=== PATIENT | female | born 1955 | race Caucasian/White ===

== ENCOUNTER → 2016-07-17 | Outpatient (REF) | payer OTHER ==
[~2016-07-17] MED LIST: OCUVTAB PO
[2016-07-17 13:17] LABS: ALBUMIN/GLOBULIN RATIO 1.29 (1.00-1.93); ALKALINE PHOSPHATASE 116 U/L (45-117); ALT/SGPT 24 U/L (12-78); ANION GAP 8 MEQ/L (8-16); AST/SGOT 14 U/L (15-37); BILIRUBIN,TOTAL 0.4 MG/DL (0.2-1.0); BLOOD UREA NITROGEN 16 MG/DL (7-18); CALCIUM LEVEL 10.3 MG/DL (8.5-10.1); CARBON DIOXIDE LEVEL 29 MEQ/L (21-32); CHLORIDE LEVEL 108 MEQ/L (98-107); CREATININE FOR GFR 0.79 MG/DL (0.55-1.02); GLOMERULAR FILTRATION RATE > 60.0 (>51); GLUCOSE, FASTING 89 MG/DL (70-105); POTASSIUM SERUM 4.5 MEQ/L (3.5-5.1); SODIUM LEVEL 145 MEQ/L (136-145); TOTAL PROTEIN 7.1 GM/DL (6.4-8.2)
== END | disposition home or self-care (01) ==
LOC: M SFHCPLAZ 11:17
PROVIDERS: ATTEND Internal Medicine Infectious Disease
DX: R76.11 Nonspecific reaction to tuberculin skin test without active tuberculosis (principal)

== ENCOUNTER → 2017-07-18 | Outpatient (CLI) | payer OTHER | LOC: M RAD 10:15 | DX: Z12.31 Encounter for screening mammogram for malignant neoplasm of breast (principal) | CPT/HCPCS: 77067 ==

== ENCOUNTER → 2017-07-31 | Outpatient (CLI) | payer OTHER | LOC: M RAD 09:42 | DX: N60.19 Diffuse cystic mastopathy of unspecified breast (principal); N60.49 Mammary duct ectasia of unspecified breast | CPT/HCPCS: 77065 ==

== ENCOUNTER → 2017-09-09 | Outpatient (CLI) | payer OTHER ==
[2017-09-09 09:47] LABS: BASO % 0.6 % (0.0-1.0); EOS # 0.2 10^3/uL (0.0-0.50); EOS % 3.2 % (0.0-3.0); HEMATOCRIT 43.9 % (36.0-47.0); HEMOGLOBIN 14.1 g/dl (12.0-15.5); IMMATURE GRANULOCYTE % 0.3 % (0-3.0); LYMPH # 2.3 10^3/uL (1.5-4.5); MEAN CORPUSCULAR HEMOGLOBIN 29.1 pg (27.0-33.0); MEAN CORPUSCULAR HGB CONC 32.1 g/dl (32.0-36.5); MEAN CORPUSCULAR VOLUME 90.5 fl (80.0-96.0); MONO # 0.7 10^3/uL (0.0-0.8); MONO % 10.3 % (0.0-5.0); NEUTROPHILS # 3.3 10^3/uL (1.8-7.7); NEUTROPHILS % 50.6 % (36.0-66.0); PLATELET COUNT, AUTOMATED 248 10^3/uL (150-450); RED BLOOD COUNT 4.85 10^6/uL (4.00-5.40); RED CELL DISTRIBUTION WIDTH 12.8 % (11.5-14.5); WHITE BLOOD COUNT 6.5 10^3/uL (4.0-10.0)
[2017-09-09 09:49] LABS: APPEARANCE, URINE CLEAR (CLEAR); BACTERIA, URINE AUTO NEGATIVE (NEGATIVE); BILIRUBIN, URINE AUTO NEGATIVE (NEGATIVE); BLOOD, URINE BLOOD NEGATIVE (NEGATIVE); COLOR, URINE YELLOW (YELLOW); GLUCOSE, URINE (UA) AUTO NEGATIVE (NEGATIVE); KETONE, URINE AUTO NEGATIVE (NEGATIVE); LEUKOCYTE ESTERASE, URINE AUTO NEGATIVE (NEGATIVE); NITRITE, URINE AUTO NEGATIVE (NEGATIVE); PROTEIN, URINE AUTO NEGATIVE (NEGATIVE); RBC, URINE AUTO 4 /HPF (0-3); SPECIFIC GRAVITY URINE AUTO 1.013 (1.002-1.035); SQUAMOUS EPITHELIAL CELL UR AU 1 /HPF (0-6); UROBILINOGEN, URINE AUTO 0.2 mg/dL (0.0-2.0); WBC, URINE AUTO 1 /HPF (0-3)
[2017-09-09 10:20] LABS: TOTAL 25(OH) VITAMIN D 34.4 NG/ML (30.0-100.0)
[2017-09-09 10:25] LABS: ESTIMATED AVERAGE GLUCOSE 111 MG/DL (60-110); HEMOGLOBIN A1c 5.5 %
[2017-09-09 10:27] LABS: ALBUMIN 3.8 GM/DL (3.2-5.2); ALBUMIN/GLOBULIN RATIO 1.15 (1.00-1.93); ALKALINE PHOSPHATASE 109 U/L (45-117); ALT/SGPT 26 U/L (12-78); ANION GAP 3 MEQ/L (8-16); AST/SGOT 16 U/L (7-37); BILIRUBIN,TOTAL 0.5 MG/DL (0.2-1.0); BLOOD UREA NITROGEN 10 MG/DL (7-18); CALCIUM LEVEL 9.9 MG/DL (8.8-10.2); CARBON DIOXIDE LEVEL 31 MEQ/L (21-32); CHLORIDE LEVEL 110 MEQ/L (98-107); CHOLESTEROL LEVEL 223 MG/DL (<200); CHOLESTEROL RISK RATIO 3.484 (<5); CREATININE FOR GFR 0.72 MG/DL (0.55-1.30); GLOMERULAR FILTRATION RATE > 60.0 (>45); GLUCOSE, FASTING 91 MG/DL (70-100); HDL CHOLESTEROL 64 MG/DL (>40); LDL CHOLESTEROL 142.4 MG/DL (<100); NON-HDL-C 159 MG/DL; POTASSIUM SERUM 4.4 MEQ/L (3.5-5.1); SODIUM LEVEL 144 MEQ/L (136-145); THYROXINE (T4) 8.7 UG/DL (4.5-12.0); TOTAL PROTEIN 7.1 GM/DL (6.4-8.2); TRIGLYCERIDES LEVEL 83 MG/DL (<150)
== END ==
LOC: M LAB 08:31
DX: Z00.00 Encounter for general adult medical examination without abnormal findings (principal); Z11.1 Encounter for screening for respiratory tuberculosis
CPT/HCPCS: 71046

== ENCOUNTER → 2017-09-18 | Outpatient (CLI) | payer OTHER ==
[2017-09-18 11:21] LABS: APPEARANCE, URINE CLEAR (CLEAR); BACTERIA, URINE AUTO NEGATIVE (NEGATIVE); BILIRUBIN, URINE AUTO NEGATIVE (NEGATIVE); BLOOD, URINE BLOOD NEGATIVE (NEGATIVE); COLOR, URINE STRAW (YELLOW); GLUCOSE, URINE (UA) AUTO NEGATIVE (NEGATIVE); KETONE, URINE AUTO NEGATIVE (NEGATIVE); LEUKOCYTE ESTERASE, URINE AUTO NEGATIVE (NEGATIVE); NITRITE, URINE AUTO NEGATIVE (NEGATIVE); PROTEIN, URINE AUTO NEGATIVE (NEGATIVE); RBC, URINE AUTO 0 /HPF (0-3); SQUAMOUS EPITHELIAL CELL UR AU 0 /HPF (0-6); UROBILINOGEN, URINE AUTO 0.2 mg/dL (0.0-2.0); WBC, URINE AUTO 0 /HPF (0-3)
[2017-09-18 11:49] LABS: ANION GAP 6 MEQ/L (8-16); BLOOD UREA NITROGEN 11 MG/DL (7-18); CALCIUM LEVEL 10.3 MG/DL (8.8-10.2); CARBON DIOXIDE LEVEL 29 MEQ/L (21-32); CHLORIDE LEVEL 110 MEQ/L (98-107); CREATININE FOR GFR 0.81 MG/DL (0.55-1.30); GLOMERULAR FILTRATION RATE > 60.0 (>45); GLUCOSE, FASTING 105 MG/DL (70-100); SODIUM LEVEL 145 MEQ/L (136-145)
== END ==
LOC: M LAB 10:50
DX: R79.9 Abnormal finding of blood chemistry, unspecified (principal); R82.90 Unspecified abnormal findings in urine
CPT/HCPCS: 80048

== ENCOUNTER → 2018-08-28 | Outpatient (CLI) | payer OTHER, SELFPAY ==
[~2018-08-28] MED LIST changes: +ALEV220C2 PO; +VITAD1000T PO
--- NOTE | 2018-08-28 15:15 | REPMRS ---
Patient History The patient states she has not had a clinical breast exam in over a year. Family history of breast cancer at age 50 or over in maternal grandmother. 3D TOMOSYNTHESIS WAS PERFORMED. Digital Woman Screen Mammo: August 28, 2018 - Exam #: [id number] Bilateral CC and MLO view(s) were taken. Technologist: Marilyn King, Technologist Prior study comparison: July 31, 2017, right breast digital mammo diagnostic unilateral, performed at [facility]. July 18, 2017, bilateral digital mammo screening bilat, performed at [facility]. FINDINGS: There are scattered fibroglandular densities. There has been no change in the appearance of the mammogram from the prior studies. There is a mild amount of residual fibroglandular tissue which is fairly symmetric. There is no interval development of dominant mass, architectural distortion, or clustered microcalcification suggestive of malignancy. Assessment: BI-RADS/ACR category 1 mammogram. Negative Mammogram. Recommendation Routine screening mammogram in 1 year (for women over age 40). This mammogram was interpreted with the aid of an FDA-approved computer-aided dectection system. Electronically Signed By: Kendrick Rosa MD 08/28/18 [id number]
== END ==
LOC: M WHC 14:20
PROVIDERS: ATTEND Family Medicine
DX: Z12.31 Encounter for screening mammogram for malignant neoplasm of breast (principal); Z80.3 Family history of malignant neoplasm of breast

== ENCOUNTER → 2018-08-28 | Outpatient (REF) | payer OTHER, SELFPAY | LOC: M SFHCWAGY 14:24 | PROVIDERS: ATTEND Family Medicine | DX: Z12.4 Encounter for screening for malignant neoplasm of cervix (principal) ==

== ENCOUNTER → 2019-01-18 | Outpatient (CLI) | payer OTHER ==
[~2019-01-18] MED LIST changes: +CHOL100029 PO; -VITAD1000T PO
[2019-01-18 18:52] LABS: BASO % 0.4 % (0.0-1.0); EOS # 0.2 10^3/uL (0.0-0.50); EOS % 2.6 % (0.0-3.0); HEMATOCRIT 44.2 % (36.0-47.0); HEMOGLOBIN 14.1 g/dl (12.0-15.5); LYMPH # 2.4 10^3/uL (1.5-4.5); LYMPH % 33.4 % (24.0-44.0); MEAN CORPUSCULAR HEMOGLOBIN 29.4 pg (27.0-33.0); MEAN CORPUSCULAR HGB CONC 31.9 g/dl (32.0-36.5); MEAN CORPUSCULAR VOLUME 92.3 fl (80.0-96.0); MONO # 0.8 10^3/uL (0.0-0.8); MONO % 10.8 % (0.0-5.0); NEUTROPHILS # 3.8 10^3/uL (1.8-7.7); NEUTROPHILS % 52.5 % (36.0-66.0); PLATELET COUNT, AUTOMATED 256 10^3/uL (150-450); RED BLOOD COUNT 4.79 10^6/uL (4.00-5.40); WHITE BLOOD COUNT 7.2 10^3/uL (4.0-10.0)
[2019-01-18 19:04] LABS: ALT/SGPT 28 U/L (12-78); BILIRUBIN,TOTAL 0.3 MG/DL (0.2-1.0); BLOOD UREA NITROGEN 9 MG/DL (7-18); CALCIUM LEVEL 10.4 MG/DL (8.8-10.2); CARBON DIOXIDE LEVEL 31 MEQ/L (21-32); CHLORIDE LEVEL 108 MEQ/L (98-107); CHOLESTEROL LEVEL 219 MG/DL (<200); CHOLESTEROL RISK RATIO 3.842 (<5); CREATININE FOR GFR 0.78 MG/DL (0.55-1.30); FREE T4 0.84 NG/DL (0.76-1.46); GLOMERULAR FILTRATION RATE > 60.0 (>45); GLUCOSE, FASTING 87 MG/DL (70-100); HDL CHOLESTEROL 57 MG/DL (>40); LDL CHOLESTEROL 130 MG/DL (<100); NON-HDL-C 162 MG/DL; POTASSIUM SERUM 4.3 MEQ/L (3.5-5.1); SODIUM LEVEL 143 MEQ/L (136-145); TRIGLYCERIDES LEVEL 160 MG/DL (<150)
[2019-01-18 19:06] LABS: TOTAL 25(OH) VITAMIN D 19.3 NG/ML (30.0-100.0)
--- NOTE | 2019-01-18 19:49 | REP ---
REASON: Positive TB test. COMPARISON: 09/09/2017. FINDINGS: The superior mediastinal structures are midline. The cardiac silhouette is unremarkable in size, shape, and position. The diaphragmatic surfaces of the lungs are regular, and the costophrenic angles are clear. The pulmonary will are clear. The imaged osseous structures are intact. IMPRESSION: There is no acute cardiopulmonary disease. No change from the prior exam. Comment: If clinical suspicion is high CT is more sensitive. Electronically Signed by Inocente Betancourt DO 01/19/2019 11:58 A
== END ==
LOC: M RAD 15:34
PROVIDERS: ATTEND Nurse Practitioner Adult Health
DX: R76.11 Nonspecific reaction to tuberculin skin test without active tuberculosis (principal); Z13.9 Encounter for screening, unspecified

== ENCOUNTER 2019-04-22 12:19 | Emergency (ER) | payer MEDICAID, OTHER, SELFPAY ==
[~2019-04-22] VITALS: Ht 162.6 cm; Wt 73.3 kg
[2019-04-22] MEDS ORDERED: IBUPROFEN 600 MG TAB PO ONE (13:00)
--- NOTE | 2019-04-22 13:35 | REP ---
Four views left wrist: 04/22/2019. Indication: Left wrist trauma. Comparison: None. Findings: Minimally displaced distal radial fracture is present, best noted on page 3 of 4. No additional acute fractures are present. There is no evidence of subluxation/dislocation. Impression: Minimally displaced distal radial ulnar fracture. Electronically Signed by Emmett Sim DO 04/22/2019 01:27 P
[2019-04-22 14:02] VITALS: BP 122/66
== END 2019-04-22 14:13 | disposition home or self-care (01) ==
LOC: M ED 12:19
DX: S52.502A Unspecified fracture of the lower end of left radius, initial encounter for closed fracture (principal); W01.0XXA Fall on same level from slipping, tripping and stumbling without subsequent striking against object, initial encounter; Y92.410 Unspecified street and highway as the place of occurrence of the external cause; H35.30 Unspecified macular degeneration; R51 Headache; Z88.2 Allergy status to sulfonamides; Z91.040 Latex allergy status; Z79.899 Other long term (current) drug therapy

== ENCOUNTER 2019-07-27 15:02 | Emergency (ER) | payer MEDICAID, OTHER ==
[~2019-07-27] VITALS: Ht 162.6 cm; Wt 72.6 kg
[2019-07-27] MEDS ORDERED: KEFL500C17 PO (17:17)
[2019-07-27] MEDS ORDERED: POLYSOL OP (17:17)
[2019-07-27 18:14] VITALS: BP 128/62
== END 2019-07-27 18:23 | disposition home or self-care (01) ==
LOC: M ED 15:02
DX: H10.89 Other conjunctivitis (principal); L03.213 Periorbital cellulitis; Z88.1 Allergy status to other antibiotic agents; Z88.2 Allergy status to sulfonamides; Z91.040 Latex allergy status

== ENCOUNTER → 2022-11-12 | Outpatient (REF) | payer OTHER ==
[~2022-11-12] MED LIST changes: +KEFL500C17 PO; +POLYSOL OP
[2022-11-14 06:10] LABS: MUMPS VIRUS IgG ANTIBODY 16.8 AU/mL (Immune >10.9)
== END ==
LOC: M LABWUC 17:36 → M LAB REF 17:36
PROVIDERS: ATTEND Physician Assistant
DX: Z02.1 Encounter for pre-employment examination (principal)

== ENCOUNTER → 2023-01-01 | Outpatient (REF) | LOC: M LAB 13:41 | PROVIDERS: ATTEND Nurse Practitioner Adult Health | DX: Z00.00 Encounter for general adult medical examination without abnormal findings (principal) ==

== ENCOUNTER → 2023-05-26 | Outpatient (REF) ==
[2023-05-26 11:51] LABS: RSV AMPLIFICATION NEGATIVE (NEGATIVE)
== END ==
LOC: M EMP 07:21
PROVIDERS: ATTEND Family Medicine
DX: Z11.52 Encounter for screening for COVID-19 (principal)

== ENCOUNTER 2023-05-31 13:22 | Emergency (ER) | payer OTHER ==
[~2023-05-31] VITALS: Ht 162.6 cm; Wt 73.7 kg
[2023-05-31 13:23] VITALS: BP 131/78; TEMP 97.1; O2SAT 97
[2023-05-31] MEDS ORDERED: IBUPROFEN 600MG TAB PO ONE (17:25)
== END 2023-05-31 18:27 | disposition home or self-care (01) ==
LOC: M ED 13:22
DX: S59.902A Unspecified injury of left elbow, initial encounter (principal); W01.0XXA Fall on same level from slipping, tripping and stumbling without subsequent striking against object, initial encounter; Y92.9 Unspecified place or not applicable; Y93.9 Activity, unspecified; Y99.0 Civilian activity done for income or pay; Z88.2 Allergy status to sulfonamides; Z91.040 Latex allergy status

== ENCOUNTER 2023-06-07 11:20 | Emergency (ER) | payer OTHER ==
[~2023-06-07] VITALS: Ht 162.6 cm; Wt 73.6 kg
[2023-06-07] MEDS ORDERED: IBUP200C25 PO (11:36)
[2023-06-07 17:43] VITALS: BP 123/60; TEMP 97; O2SAT 98
== END 2023-06-07 17:49 | disposition home or self-care (01) ==
LOC: M ED 11:20
DX: S46.002A Unspecified injury of muscle(s) and tendon(s) of the rotator cuff of left shoulder, initial encounter (principal); W00.0XXA Fall on same level due to ice and snow, initial encounter; Y92.89 Other specified places as the place of occurrence of the external cause; Y93.01 Activity, walking, marching and hiking; Y99.8 Other external cause status; Z88.2 Allergy status to sulfonamides; Z91.040 Latex allergy status